=== PATIENT | female | born 1985 | race Asian ===

== ENCOUNTER 2018-09-28 22:15 | Emergency (ER) | payer OTHER | END 2018-09-29 01:05 | disposition home or self-care (01) | LOC: FTE 22:15 | DX: S31.815A Open bite of right buttock, initial encounter (principal); W57.XXXA Bitten or stung by nonvenomous insect and other nonvenomous arthropods, initial encounter; Y92.9 Unspecified place or not applicable | CPT/HCPCS: 99282 ==